=== PATIENT | female | born 1955 | race Caucasian/White ===

== ENCOUNTER 2025-06-30 15:02 | Outpatient (CLI) | payer MEDICARE ==
[2025-06-30 16:08] LABS: #Basophils 0.05 10x3/uL (0.0-0.2); #Eosinophils 0.04 10x3/uL (0.0-0.7); #Monocytes 0.73 10x3/uL (0.11-0.59); #Neutrophils 7.71 10x3/uL (1.40-6.50); %Basophils 0.5 % (0.0-1.0); %Eosinophils 0.4 % (0.0-10.0); %Lymphocytes 15.9 % (21.0-51.0); %Monocytes 7.2 % (0.0-10.0); %Neutrophils 75.7 % (42.0-75.0); Hematocrit 33.9 % (36.0-47.0); Hemoglobin 10.7 g/dL (12.0-16.0); Mean Corpuscular Hemoglobin 32.8 pg (27.0-31.0); Mean Corpuscular Volume 104.0 fL (78.0-98.0); Platelet Count 350 10x3/uL (130-400); Red Blood Cell (RBC) Count 3.26 mill/uL (4.20-5.40); White Blood Cell (WBC) Count 10.18 10x3/uL (4.8-10.8)
[2025-06-30 16:28] LABS: Anion Gap 15 mmol/L (10-20); BUN (Urea Nitrogen) 30 mg/dL (9.8-20.1); Calc. Creatinine Clearance 0 mL/min (70-130); Calcium 9.1 mg/dL (7.8-10.44); Carbon Dioxide 19 mmol/L (23-31); Chloride 112 mmol/L (98-107); Glucose 96 mg/dL (80-115); Potassium 4.6 mmol/L (3.5-5.1); Sodium 141 mmol/L (136-145)
== END 2025-06-30 15:03 | disposition home or self-care (01) ==
LOC: LABBT 15:02
PROVIDERS: ATTEND Thoracic Surgery (Cardiothoracic Vascular Surgery)
DX: Z01.818 Encounter for other preprocedural examination (principal); I73.9 Peripheral vascular disease, unspecified
CPT/HCPCS: 80048; 85025; 86850; 86900; 86901

== ENCOUNTER 2025-06-30 16:00 | Inpatient (IN) | payer MEDICARE ==
[2025-06-30 16:08] LABS: #Basophils 0.05 10x3/uL (0.0-0.2); #Eosinophils 0.04 10x3/uL (0.0-0.7); #Monocytes 0.73 10x3/uL (0.11-0.59); #Neutrophils 7.71 10x3/uL (1.40-6.50); %Basophils 0.5 % (0.0-1.0); %Eosinophils 0.4 % (0.0-10.0); %Lymphocytes 15.9 % (21.0-51.0); %Monocytes 7.2 % (0.0-10.0); %Neutrophils 75.7 % (42.0-75.0); Hematocrit 33.9 % (36.0-47.0); Hemoglobin 10.7 g/dL (12.0-16.0); Mean Corpuscular Hemoglobin 32.8 pg (27.0-31.0); Mean Corpuscular Volume 104.0 fL (78.0-98.0); Platelet Count 350 10x3/uL (130-400); Red Blood Cell (RBC) Count 3.26 mill/uL (4.20-5.40); White Blood Cell (WBC) Count 10.18 10x3/uL (4.8-10.8)
[2025-06-30 16:28] LABS: Anion Gap 15 mmol/L (10-20); BUN (Urea Nitrogen) 30 mg/dL (9.8-20.1); Calc. Creatinine Clearance 0 mL/min (70-130); Calcium 9.1 mg/dL (7.8-10.44); Carbon Dioxide 19 mmol/L (23-31); Chloride 112 mmol/L (98-107); Glucose 96 mg/dL (80-115); Potassium 4.6 mmol/L (3.5-5.1); Sodium 141 mmol/L (136-145)
[2025-07-07] MEDS ORDERED: Heparin 5,000 UNITS/ML VIAL ONE (06:39)
[2025-07-07] MEDS ORDERED: CEFAZOLIN 1 GM VIAL ONE (07:01)
[2025-07-07] MEDS ORDERED: fentaNYL PF 100 MCG/2 ML SYRINGE ONE (07:03)
[2025-07-07] MEDS ORDERED: PROPOFOL 20 ML ONE (07:04)
[2025-07-07] MEDS ORDERED: PHENYLEPHRINE-NS 100 MCG/ML 10 ML SYRINGE ONE (07:39)
[2025-07-07] MEDS ORDERED: Ondansetron PF 4 MG/2 ML Vial ONE (09:25)
[2025-07-07] MEDS ORDERED: DHA PO SCH (09:29)
[2025-07-07] MEDS ORDERED: Non-Formulary Item 1 EACH (Gabapentin [Gabapentin] 600 MG Tablet) PO SCH (09:29)
[2025-07-07] MEDS ORDERED: Non-Formulary Item 1 EACH (Multivit-Minerals/Folic/Ginkgo [One Daily For Women 50+ Adv] 1 PO SCH (09:29)
[2025-07-07] MEDS ORDERED: [UNRECOGNIZED DRUG - OTHER] PO SCH (09:29)
[2025-07-07] MEDS ORDERED: Non-Formulary Item 1 EACH (Aspirin [Aspirin] 81 MG Tablet) PO SCH (09:29)
[2025-07-07] MEDS ORDERED: Non-Formulary Item 1 EACH (Leflunomide [Arava] 20 MG Tab) PO SCH (09:29)
[2025-07-07] MEDS ORDERED: FISH OIL PO SCH (09:29)
[2025-07-07] MEDS ORDERED: EPA PO SCH (09:29)
[2025-07-07] MEDS ORDERED: Ondansetron PF 4 MG/2 ML Vial IVP PRN (09:29)
[2025-07-07] MEDS ORDERED: COQ10 PO SCH (09:29)
[2025-07-07] MEDS ORDERED: OMEGA PO SCH (09:29)
[2025-07-07] MEDS: Aspirin Chewable 81 MG TAB PO SCH (15:37)
[2025-07-07] MEDS: Amiodarone 200 MG TAB PO SCH (15:40)
[2025-07-07] MEDS: Furosemide 20 MG TAB PO SCH (15:41)
[2025-07-07] MEDS: Lisinopril 20 MG TAB PO SCH (15:44)
[2025-07-07] MEDS: Pantoprazole 40 MG DR.TAB PO SCH (15:50)
[2025-07-07] MEDS: Gabapentin 400 MG CAP PO SCH (15:52)
[2025-07-07] MEDS: Multivitamin W/ Minerals 1 TAB PO SCH (15:55)
[2025-07-07] MEDS ORDERED: CEFAZOLIN 2 GM VIAL ONE (16:16)
[2025-07-07] MEDS: Acetaminophen 325 MG TAB PO PRN (22:01)
[2025-07-07] MEDS: PARoxetine 20 MG TAB PO SCH (22:02)
[2025-07-08 07:42] VITALS: BMI 19.5
[2025-07-08 16:08] VITALS: BP 95/51; TEMP 98.2
== END 2025-07-08 16:30 | disposition home or self-care (01) | DRG 253 ==
LOC: SURG A 07-07 06:20 → PCU 07-07 19:33
PROVIDERS: ADMIT Thoracic Surgery (Cardiothoracic Vascular Surgery); ATTEND Thoracic Surgery (Cardiothoracic Vascular Surgery)
PROC: 041L09L Bypass Left Femoral Artery to Popliteal Artery with Autologous Venous Tissue, Open Approach (ICD-10-PCS; principal; 2025-07-07)
PROC: 06BQ0ZZ Excision of Left Saphenous Vein, Open Approach (ICD-10-PCS; 2025-07-07)
DX: I73.9 Peripheral vascular disease, unspecified (principal); L97.829 Non-pressure chronic ulcer of other part of left lower leg with unspecified severity; Z88.2 Allergy status to sulfonamides; Z88.8 Allergy status to other drugs, medicaments and biological substances; Z79.899 Other long term (current) drug therapy; Z98.890 Other specified postprocedural states; Z89.421 Acquired absence of other right toe(s); Z95.5 Presence of coronary angioplasty implant and graft; Z79.01 Long term (current) use of anticoagulants; Z90.710 Acquired absence of both cervix and uterus; Z97.3 Presence of spectacles and contact lenses
CPT/HCPCS: 80048; 85025; 86850; 86900; 86901; 93005; 93010; 97139; J0690; J1100; J1644; J2250; J2405; J2704; J3010; J7030